=== PATIENT | male | born 1985 | race Two or more races ===

== ENCOUNTER 2019-11-24 07:38 | Day surgery (SDC) | payer OTHER ==
[2019-11-24] VITALS (8 sets, daily range): BP systolic 101–123; BP diastolic 68–85
[~2019-11-24] VITALS: Ht 167.6 cm; Wt 82.6 kg
--- NOTE | 2019-11-24 07:15 | Anethesia Preoperative Eval ---
Anesthesia Pre-op PMH/ROS General Date of Evaluation: Nov 24, 2019 Time of Evaluation: 07:14 Anesthesiologist: duong ASA Score: ASA 2 Mallampati Score Class I : Soft palate, uvula, fauces, pillars visible Class II: Soft palate, uvula, fauces visible Class III: Soft palate, base of uvula visible Class IV: Only hard plate visible Mallampati Classification: Class II Surgeon: ander Diagnosis: abdominal pain, ibs, constipation Surgical Procedure: egd/colonoscopy Anesthesia History: none Social History: alcohol use Family History: no anesthesia problems Allergies: Coded Allergies: GENTAMICIN (Verified Allergy, Severe, RASH, 11/24/19) Medications: see eMAR Patient NPO?: Yes Past Medical History Gastrointestinal/Genitourinary: Reports: GERD, other - ibs, constipation PSxH Narrative: appendectomy, lumbar fusion Anesthesia Pre-op Phys. Exam Physician Exam Last Vital Signs Date Time Temp Pulse Resp B/P (MAP) Pulse Ox O2 Delivery O2 Flow Rate FiO2 11/24/19 08:09 98.2 69 18 123/85 98 Room Air Constitutional: NAD Neurologic: CN 2-12 intact Cardiovascular: RRR Respiratory: CTA Gastrointestinal: S/NT/ND Airway Exam Mallampati Score: Class II MO: full Neck: flexible TMD: 2fb ROM: full Teeth: intact Anesthesia Pre-op A/P Labs Microbiology Date/Time Source Procedure Growth Status 11/23/19 10:45 Nasopharynx SARS-CoV-2 RdRp Gene Assay - Final Complete Risk Assessment & Plan Assessment: asa2 Plan: mac Status Change Before Surgery: No Pre-Antibiotics Drug: Joyce Nava MD Nov 24, 2019 07:15
[~2019-11-24 07:38] MED LIST: HYDROXYZINE PO; LYRICA100 MG ORAL; PERCOCET 5-3251 EACH ORAL
--- NOTE | 2019-11-24 08:13 | Short Stay Surgery H&P ---
History of Present Illness History of Present Illness Chief Complaint Abdominal pains, GERDs, constipation HPI Nirmal Lambert is a 34 year old male who was admitted on for Abdominal Pain, IBS,Constipation, GERDs Patient History Allergies: Coded Allergies: GENTAMICIN (Verified Allergy, Severe, RASH, 11/24/19) PAST MEDICAL HISTORY: (1) Status post lumbar discectomy Medication History Scheduled Pregabalin (Lyrica), 50 MG ORAL BID, (Reported) [Hydroxyzine], 50 MG PO DAILY, (Reported) Scheduled PRN Oxycodone/Acetaminophen 5-325* (Percocet 5-325 Mg Tablet*), 1 TAB ORAL Q4H PRN for For Pain, (Reported) Review of Systems Cardiovascular: Reports: no symptoms Respiratory: Reports: no symptoms Skeletal: Reports: trauma Gastrointestinal: Reports: gastro esophageal reflux disease Genitourinary: Reports: no symptoms Neurologic: Reports: no symptoms Endocrine: Reports: no symptoms Hematologic: Reports: no symptoms Physical Exam Vital Signs Last Vital Signs Date Time Temp Pulse Resp B/P (MAP) Pulse Ox O2 Delivery O2 Flow Rate FiO2 11/24/19 08:02 Room Air Skin: normal HENT: normal Heart: normal Lungs: normal Abdomen: abnormal Extremities: normal Genitourinary: normal Plan Plan of Care Upper and lowr GI endoscopies with obtaining biopsies as needed. Preop Interventions None. Summary of Findings See the reports. Attestation Are the patient's medical conditions optimized for surgery? Attestation Response: yes Bola Mock MD Nov 24, 2019 08:13
--- NOTE | 2019-11-24 08:14 | Pre-Procedure Note/Attestation ---
Pre-Procedure Note/Attestation Complete Prior to Procedure Planned Procedure: left Procedure Narrative: Examination of the upper and the lower GI tract via endoscopy Indications for Procedure Pre-Operative Diagnosis: R/O Gastritis, esophagitis, peptic ulcer, colitis Attestation I attest that I discussed the nature of the procedure; its benefits; risks and complications; and alternatives (and the risks and benefits of such alternatives ), prior to the procedure, with the patient (or the patient's legal inventory representative). I attest that, if there was a reasonable possibility of needing a blood transfusion, the patient (or the patient's legal inventory representative) was given the [facility] standardized written summary, pursuant to the [employer] Blood Safety Act ([place] Health and Safety Code # 1645, as amended). I attest that I re-evaluated the patient just prior to the surgery and that there has been no change in the patient's H&P, except as documented below: Bola Mock MD Nov 24, 2019 08:14
--- NOTE | 2019-11-24 08:16 | Discharge Instructions ---
Discharge Instructions Discharge Instructions Follow up with: No need to see the doctor, report will be sent to insurance [place]. For Congestive Heart Failure Reminder Report to your physician any weight gain of 5 pounds or more in one week. Bola Mock MD Nov 24, 2019 08:16
[2019-11-24] MEDS ORDERED: LR 1000ml 1,000 ML IVLG SCH (08:20)
[2019-11-24] MEDS ORDERED: fentaNYL 100 mcg/2 mL IV PRN (08:30)
[2019-11-24] MEDS ORDERED: Atropine Inj 1mg/10ml Syr IV PRN (08:30)
[2019-11-24] MEDS ORDERED: DiphenhydrAMINE 50mg/ml Inj IVP PRN (08:30)
[2019-11-24] MEDS ORDERED: Lidocaine 1% MPF 10mg/ml 5ml ONE (08:30)
[2019-11-24] MEDS ORDERED: LR 1000ml ONE (08:30)
[2019-11-24] MEDS ORDERED: Midazolam 2mg/2ml Inj IVP PRN (08:30)
--- NOTE | 2019-11-24 09:21 | Endoscopy Procedure Note ---
Endoscopy Procedure Note General Indication for Procedure: Abdominal pains/GERDs/rectal bleeding/constipation Procedures Performed: EGD - Small sliding hiatal hernia with moderate generalized gastritis. biopsy was taken per random from gastric body, colonoscopy - Internal hemorrhoids with rare rectosigmoid diverticular lesions. otherwise normal total colon. Specimen: yes Pt Tolerated Procedure Well: Yes Estimated Blood Loss: none Anesthesia Anesthesiologist: Dr. Fuchs Anesthesia: moderate sedation Medications Medication Given: see anesthesia record Inserted Devices Implant(s) used?: No Quality Quality of Bowel Preparation: Excellent Was there any complications?: No GI Core Measures 50 yrs or older w/o bx or poly: No 10yrs. F/U recommended: Yes 18 years or older w/prev. colo: No <3yrs. since last colonoscopy: No Med reason:<3 yrs.: System Reason:<3 yrs.: Bola Mock MD Nov 24, 2019 09:21
--- NOTE | 2019-11-24 10:15 | Operative Note - Dictated ---
DATE OF OPERATION: 11/24/2019 SURGEON: Bola Mock MD. PROCEDURE: Esophagogastroduodenoscopy with biopsy. PREOPERATIVE DIAGNOSIS: Abdominal pain, history of chronic gastroesophageal reflux, rule out gastritis, peptic ulcer disease, rule out Velásquez's mucosa secondary to chronic gastroesophageal reflux. POSTOPERATIVE DIAGNOSES: 1. Small sliding hiatal hernia. 2. Moderate generalized gastritis, biopsy was taken per random from gastric body. MEDICATION USED: Per Dr. Quinones, anesthesiologist. INSTRUMENT: GIF Olympus upper GI video endoscope. DESCRIPTION OF PROCEDURE: The patient after arriving an endoscopy unit, was told about risks and benefits of the procedure, which he accepted and signed informed consent. He was then put on the left lateral decubitus position. After adequate IV sedation, the scope was gently passed through the cricopharyngeal area, was lodged into the upper esophagus and gradually advanced towards gastroesophageal junction. The entire length of the esophagus looked normal. There was no evidence of any inflammatory process, ulceration, stricture, etc. Upon reaching to the GE junction, it revealed that there was a very small sliding hiatal hernia, but there was no Velásquez's mucosa. There was no ulceration or inflammatory process at this point. The scope was then guided into the stomach. Gastric cavity was distended with insufflation of air and gradually the areas of the fundus and the body and the antrum were examined, which revealed evidence of moderate inflammatory process presenting with erythema generally over the gastric body, but there was no ulcers, tumors, polyps or bleeding sites. One random biopsy from gastric body was obtained and subsequently scope was passed through normal looking pylorus. First and second portion of duodenum were also found to be completely normal. At this time, the scope was pulled back into the stomach. A retroflexion maneuver was applied and the area of the gastroesophageal junction was examined in a closer fashion, which revealed normal findings. At this point, the scope was pulled out and the procedure was terminated. The patient tolerated the procedure well. Bola Mock M.D. DR: RAHAT JOB#: [id number] CC:
--- NOTE | 2019-11-24 10:15 | Operative Note - Dictated ---
DATE OF OPERATION: 11/24/2019 SURGEON: Bola Mock MD. PROCEDURE: Total colonoscopy. PREOPERATIVE DIAGNOSIS: Rectal bleeding and abdominal pain, rule out colitis, hemorrhoids, polyps, tumors of the colon. POSTOPERATIVE DIAGNOSES: 1. Internal hemorrhoid. 2. Rare rectosigmoid diverticular lesions, otherwise complete normal study up to the base of the cecum. MEDICATION USED: Per Dr. Quinones, anesthesiologist. INSTRUMENT: GIF Olympus video colonoscope. DESCRIPTION OF PROCEDURE: The patient after arriving in the endoscopy unit, was told about risks and benefits of the procedure, which he accepted and signed informed consent. He was then put on the left lateral decubitus position. After adequate IV sedation, the scope was gently passed through the anal area which revealed evidence of internal hemorrhoids, but they were not friable at this time. A retroflexion maneuver was also applied in the rectal area, which basically proved the existence of internal hemorrhoids of mild/moderate degree. The rest of the rectum looked completely normal. At this time, the scope was gradually passed through the rectosigmoid and introduced into the descending colon which revealed occasional very rare diverticular lesions of no great significance. The rest of the descending colon was completely normal as well as the time when the scope was passed through the splenic flexure, transverse colon, hepatic flexure, and finally the scope was induced all the way down to the base of the cecum. All these areas also remained completely normal without any pathology. Colon cleanup was completely adequate and excellent. At this point within 5 minutes, the scope was gradually pulled out and same areas of the colon were re-examined closely and it did not reveal any other abnormalities more than I mentioned earlier. Finally, the patient tolerated the procedure well and left the endoscopy room in a good condition. Bola Mock M.D. DR: PATRIC JOB#: [id number] CC:
--- NOTE | 2019-11-24 10:24 | Immediate Post-Op Evaluation ---
Immediate Post-Op Evalulation Immediate Post-Op Evalulation Procedure: egd/colonoscopy w/bx Date of Evaluation: Nov 24, 2019 Time of Evaluation: 09:43 IV Fluids: 550ml lr Blood Products: none Estimated Blood Loss: negligible Blood Pressure Systolic: 103 Blood Pressure Diastolic: 75 Pulse Rate: 70 Respiratory Rate: 18 O2 Sat by Pulse Oximetry: 98 Temperature (Fahrenheit): 97.5 Pain Score (1-10): 0 Nausea: No Vomiting: No Complications none Patient Status: awake, reacts, patent Hydration Status: adequate Drug: Joyce Nava MD Nov 24, 2019 10:24
--- NOTE | 2019-11-24 10:26 | 48 Hour Post Anesthesia Eval ---
Post Anesthesia Evaluation Procedure: egd/colonoscopy w/bx Date of Evaluation: Nov 24, 2019 Time of Evaluation: 09:45 Blood Pressure Systolic: 102 0: 75 Pulse Rate: 65 Respiratory Rate: 18 Temperature (Fahrenheit): 97.5 O2 Sat by Pulse Oximetry: 98 Airway: patent Nausea: No Vomiting: No Pain Intensity: 0 Hydration Status: adequate Cardiopulmonary Status: stable Mental Status/LOC: patient returned to baseline Post-Anesthesia Complications: none Follow-up care needed: N/A Joyce Fuchs MD Nov 24, 2019 10:26
--- NOTE | 2019-11-24 11:14 | Pre-op HX & Phy Repo 2 SIG ---
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 I had the opportunity of examining this patient in my office in July 08, 2019, as he was being examined by Gastroenterology that I was positioning at that time. At this point, I suggested the patient should receive an upper and lower GI endoscopic examination for further evaluation of his GI symptoms. 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 At that time, he was seen by multiple examiners including Orthopedics and received physical therapy and for him suggested to undergo the surgery for which he received for discectomy as well, which was related to the injuries at work. Subsequently, the patient was started on numerous medications including nonsteroidal anti-inflammatory agents and strong opioids such as Vicodin and Percocet. At this time today, the patient also having the same complains of initial GI condition that I saw him for few months ago as he is complaining of experiencing pain over the epigastric area as well as lower part of the abdomen on both sides. These pains are intermittent in nature, as he also does have significant heartburn. He does have occasional rectal bleeding for which he has had an IV secondary to underlying hemorrhoids that he has developed subsequent taking significant amount of opioids and having constipation thereafter. His abdominal pain is moderate in intensity as well. As I mentioned, he does have reflux symptoms of acid for which he has been taking some medications such as anti-acid and Tums. He denies having any difficulty swallowing at this point of time. As I mentioned, he was taking significant amount of pain medication such as Percocet, which has caused some significant constipation that he still continues to have with occasional rectal bleeding. He however denies having problem with regurgitation as he does have problem with consumption of regular milk. There has been no history of hematemesis or melena, however, at this point. PAST MEDICAL HISTORY: Basically is negative for having high blood pressure, hyperlipidemia, arthritis, gastritis, peptic ulcer disease, etc., as he states he never had any gastrointestinal conditions before being hired at this job site and received multiple medications after the injury. SURGICAL HISTORY: The patient has had lower back surgeries for the disc condition secondary to work accident. ALLERGIES: He is allergic to gentamicin and hamburger. CHILDHOOD DISEASES: As usual. HABITS: He occasionally drinks alcohol, but does not use any illicit drugs and does not smoke cigarettes. PRESENT MEDICATIONS: Hydroxyzine, Colace and Percocet. REVIEW OF SYSTEMS: Basically history of present illness. He denies having any headaches or dizziness or problem with voice changes in the morning. He denies having shortness of breath or cough. No palpitation or chest pain noted. No urological conditions. He denies having any weakness or tingling sensations at this time over the extremities. PHYSICAL EXAMINATION: GENERAL: At this time reveals alert, well-oriented gentleman, does not seem to be in any acute distress. He looks well developed and nourished and answers the questions quite properly. VITAL SIGNS: Temperature 98.2, pulse rate 69 per minute, respiratory rate 18 per minute, blood pressure 123/85, oxygen saturation 98% on room air. HEENT: Normocephalic. Pupils equal in size and reactive to light and accommodation. No visible jaundice. Buccal cavity, tongue midline, well hydrated. No ulcers. NECK: Supple. No JVD, thyromegaly, or adenopathy. CHEST: Clear to auscultation and percussion. No rales or rhonchi. HEART: S1, S2 normal. Regular rhythm. No gallops or murmur. ABDOMEN: Soft, but obese. There are areas of tenderness over the upper and lower part of the abdomen, but no organomegaly. No palpable mass. No rebound phenomenon. EXTREMITIES: Within normal limits. No pretibial edema, cyanosis, or clubbing. CENTRAL NERVOUS SYSTEM: Grossly normal. INITIAL PREOPERATIVE IMPRESSION: 1. History of chronic gastroesophageal acid reflux and epigastric pain consistent with GERD aggravated by side effects of NSAID medications and opioids, rule out underlying gastritis, peptic ulcer disease, esophagitis. 2. Generalized abdominal pain with occasional rectal bleeding secondary to constipation caused by opioids consistent with irritable bowel syndrome rule out, narcotic bowel syndrome secondary to chronic use of opioids. 3. Rectal bleeding, possibly secondary to hemorrhoids caused by side effects of narcotics causing constipation, rule out underlying colitis, polyps, tumors in the colon. 4. History of bodily injury, work related. RECOMMENDATIONS: At this point, when I examined the patient today, the patient seems to be quite stable to undergo the procedures of upper and lower GI endoscopic examination for which he has been authorized to receive for further evaluation of his gastrointestinal conditions. He understands the risks and benefits and will sign the consent as such. Said Jasvir Mock DR: RAHAT JOB#: [id number] CC:
== END 2019-11-24 10:30 | disposition home or self-care (01) ==
LOC: GAS 07:38
DX: K62.5 Hemorrhage of anus and rectum (principal); K64.8 Other hemorrhoids; K57.31 Diverticulosis of large intestine without perforation or abscess with bleeding; K21.9 Gastro-esophageal reflux disease without esophagitis; K59.00 Constipation, unspecified; E66.9 Obesity, unspecified; Z88.8 Allergy status to other drugs, medicaments and biological substances; R12 Heartburn; Z90.89 Acquired absence of other organs; Z98.1 Arthrodesis status; K44.9 Diaphragmatic hernia without obstruction or gangrene; K29.70 Gastritis, unspecified, without bleeding; B96.81 Helicobacter pylori [H. pylori] as the cause of diseases classified elsewhere
CPT/HCPCS: 43239; 45378; 94003; J2704; J7120; U0002; 94150